=== PATIENT | male | born 1980 | race Caucasian/White ===

== ENCOUNTER 2023-09-27 05:08 | Emergency (ER) | payer SELFPAY ==
[2023-09-27] MEDS ORDERED: Sodium Chloride 0.9% 10 ML Syringe FLUSH PRN (05:39)
[2023-09-27 06:09] LABS: BASOPHILS ABSOLUTE AUTO 0.05 10^3/uL (0.00-0.10); BASOPHILS PERCENT AUTO 0.9 % (0.0-1.0); EOSINOPHILS ABSOLUTE AUTO 0.35 10^3/uL (0.10-0.30); EOSINOPHILS PERCENT AUTO 6.3 % (1.0-3.0); HEMATOCRIT 44.4 % (40.0-52.0); HEMOGLOBIN 14.7 g/dL (13.0-17.0); IMMATURE GRAN ABSOLUTE AUTO 0.02 10^3/uL (0.00-0.50); IMMATURE GRAN PERCENT AUTO 0.4 % (0.0-5.0); LYMPHOCYTES ABSOLUTE AUTO 1.37 10^3/uL (1.00-4.00); LYMPHOCYTES PERCENT AUTO 24.8 % (20.0-40.0); MEAN CORPUSCULAR HEMOGLOBIN 31.4 pg (27.0-31.0); MEAN CORPUSCULAR HGB CONC 33.1 g/dL (32.0-36.0); MEAN CORPUSCULAR VOLUME 94.9 fL (82.0-92.0); MEAN PLATELET VOLUME 8.9 fL (7.4-10.4); MONOCYTES ABSOLUTE AUTO 0.61 10^3/uL (0.10-0.80); NEUTROPHILS ABSOLUTE AUTO 3.13 10^3/uL (2.50-7.00); NEUTROPHILS PERCENT AUTO 56.6 % (50.0-70.0); PLATELET COUNT,PLT 328 10^3/uL (150-400); RED BLOOD CELL COUNT 4.68 10^6/uL (4.50-6.00); RED CELL DISTRIBUTION WIDTH 11.7 % (11.5-14.5); WHITE BLOOD CELL COUNT,WBC 5.53 10^3/uL (5.00-10.00)
[2023-09-27] MEDS ORDERED: Lisinopril 10 MG Tab PO ONE (06:22)
[2023-09-27] MEDS ORDERED: Albuterol/Ipratropium 3.0-0.5 MG/3 ML Neb Soln NEB ONE (06:23)
[2023-09-27 06:33] LABS: ALANINE AMINOTRANSFERASE,ALT 76 U/L (14-63); ALBUMIN 3.65 g/dL (3.40-5.00); ALKALINE PHOSPHATASE 56 U/L (46-116); ANION GAP 14.8 mmol/L (5-15); ASPARTATE AMNIOTRANSFERASE,AST 35 U/L (15-37); BILIRUBIN TOTAL 0.2 mg/dL (0.2-1.0); BLOOD UREA NITROGEN,BUN 15 mg/dL (7-18); CALCIUM 8.9 mg/dL (8.7-10.3); CARBON DIOXIDE,CO2 24.7 mmol/L (21.0-32.0); CHLORIDE,CL 103 mmol/L (98-107); CREATININE 0.94 mg/dL (0.51-1.17); ESTIMATED GFR 103 mL/min (>=60); GLUCOSE RANDOM 123 mg/dL (70-140); POTASSIUM,K 4.5 mmol/L (3.5-5.1); PROTEIN TOTAL,TP 7.6 g/dL (6.4-8.2); SODIUM,NA 138 mmol/L (136-145)
[2023-09-27 06:48] LABS: B-TYPE NATRIURETIC PEPTIDE,BNP 5 pg/mL (0-100)
[2023-09-27 06:56] LABS: INFLUENZA A NAA NEGATIVE (NEGATIVE); INFLUENZA B NAA NEGATIVE (NEGATIVE); RESPIRATORY SYNCYTIAL VIR NAA NEGATIVE (NEGATIVE)
[2023-09-27 06:57] LABS: CORONAVIRUS COVID-19 NAA NEGATIVE (NEGATIVE)
== END 2023-09-27 07:49 | disposition home or self-care (01) ==
LOC: KA.ED 05:08
DX: R07.89 Other chest pain (principal); I10 Essential (primary) hypertension; R05.9 Cough, unspecified; R06.83 Snoring; Z88.8 Allergy status to other drugs, medicaments and biological substances; Z20.822 Contact with and (suspected) exposure to COVID-19; Z87.891 Personal history of nicotine dependence; Z79.899 Other long term (current) drug therapy
CPT/HCPCS: 0241U; 71046; 80053; 83880; 84484; 85025; 85379; 93005; 93010; 94640; 99284; 99285; A9270-GY; J3490; J7620-GY

== ENCOUNTER 2024-08-05 08:58 | Emergency (ER) | payer SELFPAY ==
[2024-08-05 09:53] LABS: BASOPHILS ABSOLUTE AUTO 0.03 10^3/uL (0.00-0.10); BASOPHILS PERCENT AUTO 0.5 % (0.0-1.0); EOSINOPHILS ABSOLUTE AUTO 0.15 10^3/uL (0.10-0.30); EOSINOPHILS PERCENT AUTO 2.7 % (1.0-3.0); HEMATOCRIT 45.3 % (40.0-52.0); HEMOGLOBIN 15.1 g/dL (13.0-17.0); IMMATURE GRAN ABSOLUTE AUTO 0.01 10^3/uL (0.00-0.50); IMMATURE GRAN PERCENT AUTO 0.2 % (0.0-5.0); LYMPHOCYTES ABSOLUTE AUTO 1.38 10^3/uL (1.00-4.00); LYMPHOCYTES PERCENT AUTO 25.1 % (20.0-40.0); MEAN CORPUSCULAR HEMOGLOBIN 31.3 pg (27.0-31.0); MEAN CORPUSCULAR HGB CONC 33.3 g/dL (32.0-36.0); MEAN PLATELET VOLUME 8.8 fL (7.4-10.4); MONOCYTES PERCENT AUTO 9.1 % (2.0-8.0); NEUTROPHILS ABSOLUTE AUTO 3.43 10^3/uL (2.50-7.00); NEUTROPHILS PERCENT AUTO 62.4 % (50.0-70.0); PLATELET COUNT,PLT 311 10^3/uL (150-400); RED BLOOD CELL COUNT 4.82 10^6/uL (4.50-6.00)
[2024-08-05 10:10] LABS: ALBUMIN 3.78 g/dL (3.40-5.00); ANION GAP 16.4 mmol/L (5-15); BILIRUBIN TOTAL 0.8 mg/dL (0.2-1.0); CALCIUM 8.5 mg/dL (8.7-10.3); CARBON DIOXIDE,CO2 24.9 mmol/L (21.0-32.0); CREATININE 0.83 mg/dL (0.51-1.17); EST CRCL DRUG DOSING (CG) 134.33 mL/min; POTASSIUM,K 4.3 mmol/L (3.5-5.1); PROTEIN TOTAL,TP 7.9 g/dL (6.4-8.2)
== END 2024-08-05 12:15 | disposition home or self-care (01) ==
LOC: KA.ED 08:58
DX: J20.9 Acute bronchitis, unspecified (principal); I10 Essential (primary) hypertension; E66.9 Obesity, unspecified; Z68.31 Body mass index [BMI] 31.0-31.9, adult; Z86.16 Personal history of COVID-19; Z79.899 Other long term (current) drug therapy; Z88.1 Allergy status to other antibiotic agents; Z88.8 Allergy status to other drugs, medicaments and biological substances
CPT/HCPCS: 71046; 80053; 83690; 85025; 86480; 99283; 99284

== ENCOUNTER 2024-10-19 15:20 | Emergency (ER) | payer SELFPAY ==
[2024-10-19 15:49] LABS: BASOPHILS ABSOLUTE AUTO 0.03 10^3/uL (0.00-0.10); BASOPHILS PERCENT AUTO 0.3 % (0.0-1.0); EOSINOPHILS ABSOLUTE AUTO 0.31 10^3/uL (0.10-0.30); EOSINOPHILS PERCENT AUTO 2.9 % (1.0-3.0); HEMATOCRIT 45.5 % (40.0-52.0); HEMOGLOBIN 15.6 g/dL (13.0-17.0); IMMATURE GRAN ABSOLUTE AUTO 0.01 10^3/uL (0.00-0.50); IMMATURE GRAN PERCENT AUTO 0.1 % (0.0-5.0); LYMPHOCYTES ABSOLUTE AUTO 2.52 10^3/uL (1.00-4.00); LYMPHOCYTES PERCENT AUTO 23.9 % (20.0-40.0); MEAN CORPUSCULAR HEMOGLOBIN 31.8 pg (27.0-31.0); MEAN CORPUSCULAR HGB CONC 34.3 g/dL (32.0-36.0); MEAN CORPUSCULAR VOLUME 92.7 fL (82.0-92.0); MEAN PLATELET VOLUME 8.9 fL (7.4-10.4); MONOCYTES ABSOLUTE AUTO 0.92 10^3/uL (0.10-0.80); MONOCYTES PERCENT AUTO 8.7 % (2.0-8.0); NEUTROPHILS ABSOLUTE AUTO 6.77 10^3/uL (2.50-7.00); NEUTROPHILS PERCENT AUTO 64.1 % (50.0-70.0); PLATELET COUNT,PLT 361 10^3/uL (150-400); RED BLOOD CELL COUNT 4.91 10^6/uL (4.50-6.00); RED CELL DISTRIBUTION WIDTH 11.5 % (11.5-14.5); WHITE BLOOD CELL COUNT,WBC 10.56 10^3/uL (5.00-10.00)
[2024-10-19 16:05] LABS: ALBUMIN 4.09 g/dL (3.40-5.00); ANION GAP 14.6 mmol/L (5-15); BILIRUBIN TOTAL 0.6 mg/dL (0.2-1.0); CALCIUM 8.7 mg/dL (8.7-10.3); CARBON DIOXIDE,CO2 25.4 mmol/L (21.0-32.0); CREATININE 0.92 mg/dL (0.51-1.17); EST CRCL DRUG DOSING (CG) 121.19 mL/min; PROTEIN TOTAL,TP 8.2 g/dL (6.4-8.2)
[2024-10-19] MEDS: methylPREDNISolone Sodium Succinate 125 MG/2 ML SDV IVPUSH ONE (16:15)
[2024-10-19] MEDS: Albuterol/Ipratropium 3.0-0.5 MG/3 ML Neb Soln NEB ONE ×2 (16:21→16:53)
[2024-10-19] MEDS: cefTRIAXone 2 GM Vial IVPUSH ONE (16:44)
[2024-10-19 17:08] LABS: INFLUENZA A NAA NEGATIVE (NEGATIVE); INFLUENZA B NAA NEGATIVE (NEGATIVE)
[2024-10-19 17:10] LABS: CORONAVIRUS COVID-19 NAA NEGATIVE (NEGATIVE)
[2024-10-19] MEDS: Albuterol 0.083% 2.5 MG/3 ML Neb Soln NEB ONE (17:22)
[2024-10-19] MEDS: predniSONE 20 MG Tab PO ONE (17:45)
[2024-10-19] MEDS: Albuterol 8 GM Inhaler INH ONE (17:46)
== END 2024-10-19 17:55 | disposition home or self-care (01) ==
LOC: KA.ED 15:20
DX: J44.1 Chronic obstructive pulmonary disease with (acute) exacerbation (principal); I10 Essential (primary) hypertension; E66.9 Obesity, unspecified; Z68.32 Body mass index [BMI] 32.0-32.9, adult; Z86.16 Personal history of COVID-19; Z79.899 Other long term (current) drug therapy; Z88.1 Allergy status to other antibiotic agents; Z88.8 Allergy status to other drugs, medicaments and biological substances
CPT/HCPCS: 0240U; 36415; 71046; 80053; 83605; 85025; 94640; 96374; 96375; 99285-25; A9270-GY; J0696; J2919; J7512; J7613-GY; J7620-GY

== ENCOUNTER 2024-10-22 06:55 | Inpatient (IN) | payer SELFPAY ==
[2024-10-22] MEDS: Albuterol/Ipratropium 3.0-0.5 MG/3 ML Neb Soln NEB ONE ×2 (07:08→07:24)
[2024-10-22 07:13] LABS: BASOPHILS ABSOLUTE AUTO 0.04 10^3/uL (0.00-0.10); BASOPHILS PERCENT AUTO 0.3 % (0.0-1.0); EOSINOPHILS ABSOLUTE AUTO 0.11 10^3/uL (0.10-0.30); EOSINOPHILS PERCENT AUTO 0.9 % (1.0-3.0); HEMATOCRIT 46.6 % (40.0-52.0); HEMOGLOBIN 15.2 g/dL (13.0-17.0); IMMATURE GRAN ABSOLUTE AUTO 0.03 10^3/uL (0.00-0.50); IMMATURE GRAN PERCENT AUTO 0.2 % (0.0-5.0); LYMPHOCYTES ABSOLUTE AUTO 3.75 10^3/uL (1.00-4.00); MEAN CORPUSCULAR HEMOGLOBIN 31.5 pg (27.0-31.0); MEAN CORPUSCULAR HGB CONC 32.6 g/dL (32.0-36.0); MEAN CORPUSCULAR VOLUME 96.7 fL (82.0-92.0); MEAN PLATELET VOLUME 8.8 fL (7.4-10.4); MONOCYTES ABSOLUTE AUTO 1.21 10^3/uL (0.10-0.80); NEUTROPHILS ABSOLUTE AUTO 6.97 10^3/uL (2.50-7.00); NEUTROPHILS PERCENT AUTO 57.6 % (50.0-70.0); PLATELET COUNT,PLT 404 10^3/uL (150-400); RED BLOOD CELL COUNT 4.82 10^6/uL (4.50-6.00); RED CELL DISTRIBUTION WIDTH 11.9 % (11.5-14.5); WHITE BLOOD CELL COUNT,WBC 12.11 10^3/uL (5.00-10.00)
[2024-10-22] MEDS ORDERED: Sodium Chloride 0.9% 10 ML Syringe FLUSH PRN (07:15)
[2024-10-22] MEDS: Sodium Chloride 0.9% 1,000 ML IV ONE (07:24)
[2024-10-22 07:31] LABS: ALBUMIN 3.8 g/dL (3.40-5.00); ANION GAP 16.4 mmol/L (5-15); BILIRUBIN TOTAL 0.3 mg/dL (0.2-1.0); CALCIUM 9.2 mg/dL (8.7-10.3); CARBON DIOXIDE,CO2 25.9 mmol/L (21.0-32.0); CREATININE 1.06 mg/dL (0.51-1.17); EST CRCL DRUG DOSING (CG) 105.18 mL/min; POTASSIUM,K 4.3 mmol/L (3.5-5.1); PROTEIN TOTAL,TP 7.7 g/dL (6.4-8.2)
[2024-10-22] MEDS: methylPREDNISolone Sodium Succinate 125 MG/2 ML SDV IVPUSH ONE (07:31)
[2024-10-22] MEDS: LORazepam 2 MG/ML SDV IVPUSH ONE (07:41)
[2024-10-22] MEDS ORDERED: Ondansetron 4 MG Tab.DIS PO PRN (09:21)
[2024-10-22] MEDS: Azithromycin 500 MG in Sodium Chloride 0.9% 250 ML IV SCH (09:46)
[2024-10-22] MEDS: FLU (Fluarix Triv) TS24-25(6MOS UP)/PF 45 MCG/0.5 ML Syringe IM ONE (10:31)
[2024-10-22] MEDS: Albuterol/Ipratropium 3.0-0.5 MG/3 ML Neb Soln NEB SCH (10:31)
[2024-10-22] MEDS: Albuterol/Ipratropium 3.0-0.5 MG/3 ML Neb Soln NEB PRN (15:52)
[2024-10-22] MEDS: LORazepam 2 MG/ML SDV IV PRN (18:39)
[2024-10-22] MEDS: QUEtiapine 25 MG Tab PO SCH (20:36)
[2024-10-22] MEDS: Acetaminophen 325 MG Tab PO PRN (20:41)
[2024-10-23 07:20] LABS: HEMATOCRIT 42.8 % (40.0-52.0); HEMOGLOBIN 14.1 g/dL (13.0-17.0); MEAN CORPUSCULAR HEMOGLOBIN 31.9 pg (27.0-31.0); MEAN CORPUSCULAR HGB CONC 32.9 g/dL (32.0-36.0); MEAN CORPUSCULAR VOLUME 96.8 fL (82.0-92.0); PLATELET COUNT,PLT 325 10^3/uL (150-400); RED BLOOD CELL COUNT 4.42 10^6/uL (4.50-6.00); RED CELL DISTRIBUTION WIDTH 11.9 % (11.5-14.5)
[2024-10-23 07:39] LABS: ALBUMIN 3.46 g/dL (3.40-5.00); ANION GAP 12.6 mmol/L (5-15); BILIRUBIN TOTAL 0.3 mg/dL (0.2-1.0); CARBON DIOXIDE,CO2 28.3 mmol/L (21.0-32.0); CREATININE 0.91 mg/dL (0.51-1.17); EST CRCL DRUG DOSING (CG) 122.52 mL/min; POTASSIUM,K 3.9 mmol/L (3.5-5.1); PROTEIN TOTAL,TP 6.9 g/dL (6.4-8.2)
[2024-10-23 07:48] LABS: CALCIUM 8.2 mg/dL (8.7-10.3)
[2024-10-23] MEDS: methylPREDNISolone Sodium Succinate 40 MG/1 ML SDV IVPUSH SCH ×2 (08:00→22:13)
[2024-10-23] MEDS: guaiFENesin 600 MG Tab.ER PO SCH (11:41)
[2024-10-23] MEDS: Lisinopril 10 MG Tab PO SCH (11:42)
[2024-10-23] MEDS: methylPREDNISolone Sodium Succinate 40 MG/1 ML SDV IVPUSH ONE (11:43)
[2024-10-23] MEDS: Albuterol/Ipratropium 3.0-0.5 MG/3 ML Neb Soln NEB SCH (12:52)
[2024-10-23] MEDS: PRAZOSIN HCL 2 MG PO SCH (20:23)
[2024-10-23] MEDS: Enoxaparin 40 MG/0.4 ML Syringe SUBCUT SCH (20:24)
[2024-10-24 07:43] LABS: HEMATOCRIT 42.3 % (40.0-52.0); HEMOGLOBIN 13.9 g/dL (13.0-17.0); MEAN CORPUSCULAR HEMOGLOBIN 31.7 pg (27.0-31.0); MEAN CORPUSCULAR HGB CONC 32.9 g/dL (32.0-36.0); MEAN CORPUSCULAR VOLUME 96.4 fL (82.0-92.0); MEAN PLATELET VOLUME 8.9 fL (7.4-10.4); PLATELET COUNT,PLT 327 10^3/uL (150-400); RED BLOOD CELL COUNT 4.39 10^6/uL (4.50-6.00); RED CELL DISTRIBUTION WIDTH 11.8 % (11.5-14.5); WHITE BLOOD CELL COUNT,WBC 13.44 10^3/uL (5.00-10.00)
[2024-10-24 08:04] LABS: ALBUMIN 3.53 g/dL (3.40-5.00); ANION GAP 14.1 mmol/L (5-15); BILIRUBIN TOTAL 0.3 mg/dL (0.2-1.0); CALCIUM 8.2 mg/dL (8.7-10.3); CARBON DIOXIDE,CO2 24.6 mmol/L (21.0-32.0); CREATININE 0.93 mg/dL (0.51-1.17); EST CRCL DRUG DOSING (CG) 119.89 mL/min; POTASSIUM,K 4.7 mmol/L (3.5-5.1); PROTEIN TOTAL,TP 7.1 g/dL (6.4-8.2)
[2024-10-24 08:54] VITALS: BP 128/66
[2024-10-24 09:31] VITALS: PULSE 118
[2024-10-26 05:02] LABS: B PARAPERTUSSIS, PCR Not Detected; B PERTUSSIS, PCR Detected; BPERT/PARAPERT SOURCE Nasopharyngeal
== END 2024-10-24 14:20 | disposition home or self-care (01) | DRG 189 ==
LOC: KA.ED 06:55 → KA.MS 07:54
PROVIDERS: ADMIT Internal Medicine; ATTEND Internal Medicine
DX: J96.01 Acute respiratory failure with hypoxia (principal); J44.1 Chronic obstructive pulmonary disease with (acute) exacerbation; D84.9 Immunodeficiency, unspecified; J44.0 Chronic obstructive pulmonary disease with (acute) lower respiratory infection; I10 Essential (primary) hypertension; G47.30 Sleep apnea, unspecified; E66.9 Obesity, unspecified; Z96.642 Presence of left artificial hip joint; F43.10 Post-traumatic stress disorder, unspecified; Z88.1 Allergy status to other antibiotic agents; Z88.8 Allergy status to other drugs, medicaments and biological substances; Z79.899 Other long term (current) drug therapy; Z68.30 Body mass index [BMI] 30.0-30.9, adult; Z86.16 Personal history of COVID-19; Z79.51 Long term (current) use of inhaled steroids; Z87.891 Personal history of nicotine dependence
CPT/HCPCS: 36415; 71045; 80053; 83605; 84484; 85025; 85027; 87798; 90656; 94640; 96374; 96375; 99285-25; A9270-GY; G0008; J0456; J1650; J2060; J2919; J7030; J7050; J7620-GY; Q3014

== ENCOUNTER 2024-11-07 10:05 | Observation (INO) | payer SELFPAY ==
[2024-11-07 10:18] LABS: BASOPHILS ABSOLUTE AUTO 0.03 10^3/uL (0.00-0.10); BASOPHILS PERCENT AUTO 0.7 % (0.0-1.0); EOSINOPHILS ABSOLUTE AUTO 0.16 10^3/uL (0.10-0.30); EOSINOPHILS PERCENT AUTO 3.8 % (1.0-3.0); HEMATOCRIT 40.8 % (40.0-52.0); HEMOGLOBIN 13.9 g/dL (13.0-17.0); LYMPHOCYTES ABSOLUTE AUTO 1.06 10^3/uL (1.00-4.00); MEAN CORPUSCULAR HGB CONC 34.1 g/dL (32.0-36.0); MEAN CORPUSCULAR VOLUME 93.8 fL (82.0-92.0); MONOCYTES PERCENT AUTO 11.8 % (2.0-8.0); NEUTROPHILS ABSOLUTE AUTO 2.49 10^3/uL (2.50-7.00); NEUTROPHILS PERCENT AUTO 58.7 % (50.0-70.0); PLATELET COUNT,PLT 321 10^3/uL (150-400); RED BLOOD CELL COUNT 4.35 10^6/uL (4.50-6.00); RED CELL DISTRIBUTION WIDTH 11.4 % (11.5-14.5); WHITE BLOOD CELL COUNT,WBC 4.24 10^3/uL (5.00-10.00)
[2024-11-07] MEDS: Sodium Chloride 0.9% Inhalation Soln 3 ML Neb INH PRN (10:30)
[2024-11-07] MEDS: Racepinephrine 2.25% 0.5 ML Neb Soln NEB ONE (10:30)
[2024-11-07 10:35] LABS: ALANINE AMINOTRANSFERASE,ALT 39 U/L (14-63); ALBUMIN 3.78 g/dL (3.40-5.00); ALKALINE PHOSPHATASE 54 U/L (46-116); ASPARTATE AMNIOTRANSFERASE,AST 22 U/L (15-37); BILIRUBIN TOTAL 0.7 mg/dL (0.2-1.0); BLOOD UREA NITROGEN,BUN 12 mg/dL (7-18); CALCIUM 8.9 mg/dL (8.7-10.3); CARBON DIOXIDE,CO2 23.2 mmol/L (21.0-32.0); CHLORIDE,CL 104 mmol/L (98-107); CREATININE 0.94 mg/dL (0.51-1.17); GLUCOSE RANDOM 125 mg/dL (70-140); POTASSIUM,K 4.2 mmol/L (3.5-5.1); PROTEIN TOTAL,TP 7.3 g/dL (6.4-8.2); SODIUM,NA 140 mmol/L (136-145)
[2024-11-07] MEDS: Sodium Chloride 0.9% 1,000 ML IV SCH (10:37)
[2024-11-07] MEDS: methylPREDNISolone Sodium Succinate 125 MG/2 ML SDV IVPUSH ONE (10:37)
[2024-11-07 10:39] LABS: C-REACTIVE PROTEIN < 0.50 mg/dL (0.00-0.50); ESTIMATED GFR 102 mL/min (>=60)
[2024-11-07] MEDS ORDERED: Acetaminophen 325 MG Tab PO PRN (16:17)
[2024-11-07] MEDS ORDERED: Racepinephrine 2.25% 0.5 ML Neb Soln NEB PRN (16:17)
[2024-11-07] MEDS ORDERED: Sodium Chloride 0.9% Inhalation Soln 3 ML Neb INH PRN (16:17)
[2024-11-07] MEDS ORDERED: LORazepam 0.5 MG Tab PO PRN (16:22)
[2024-11-07] MEDS: predniSONE 20 MG Tab PO SCH (17:30)
[2024-11-07] MEDS: Albuterol/Ipratropium 3.0-0.5 MG/3 ML Neb Soln NEB SCH (17:31)
[2024-11-07] MEDS: QUEtiapine 25 MG Tab PO SCH (21:01)
[2024-11-07] MEDS: LORazepam 0.5 MG Tab PO PRN (21:01)
[2024-11-08] MEDS: Albuterol 0.083% 2.5 MG/3 ML Neb Soln NEB PRN (01:26)
[2024-11-08] MEDS: Lisinopril 10 MG Tab PO SCH (07:05)
[2024-11-08] MEDS ORDERED: Non-Formulary Medication 1 Each (Prazosin Hcl [Prazosin] 2 MG Capsule) PO SCH (09:00)
== END 2024-11-08 14:12 | disposition home or self-care (01) ==
LOC: KA.ED 10:05 → KA.MS 12:41
PROVIDERS: ADMIT Internal Medicine; ATTEND Internal Medicine
DX: J44.1 Chronic obstructive pulmonary disease with (acute) exacerbation (principal); A37.90 Whooping cough, unspecified species without pneumonia; J20.9 Acute bronchitis, unspecified; I10 Essential (primary) hypertension; Z79.899 Other long term (current) drug therapy; Z88.1 Allergy status to other antibiotic agents
CPT/HCPCS: 36415; 71046; 80053; 85025; 86140; 87428-QW; 94640; 96361; 96374; 99223-GT; 99238-GT; 99284-25; A9270-GY; J2919; J3490; J7030; J7512; J7613-GY; J7620-GY; Q3014